=== PATIENT | male | born 1995 | race Caucasian/White ===

== ENCOUNTER 2020-10-15 15:09 | Emergency (ER) | payer OTHER ==
[~2020-10-15] VITALS: Ht 175.3 cm; Wt 86.4 kg
[2020-10-15] MEDS ORDERED: normal saline 1000ML IV soln IVB ONE (15:15)
[2020-10-15] MEDS ORDERED: ondansetron/PF 4mg/2ml inj IV ONE (15:15)
[2020-10-15 15:38] LABS: BASOPHILS % (AUTO) 0.3 % (0-1); EOSINOPHILS # (AUTO) 0.1 X10'3 (0-0.9); EOSINOPHILS % (AUTO) 1.1 % (0-6); HEMATOCRIT 49.6 % (42.0-52.0); HEMOGLOBIN 17.2 g/dl (14.0-17.9); LYMPHOCYTES # (AUTO) 2.4 X10'3 (1.1-4.8); LYMPHOCYTES % (AUTO) 25.6 % (21-51); MEAN CORPUSCULAR HEMOGLOBIN 31.7 PG (27.0-31.0); MEAN CORPUSCULAR HGB CONC 34.6 g/dL (33.0-36.5); MEAN CORPUSCULAR VOLUME 91.5 FL (78-98); MONOCYTES # (AUTO) 0.6 X10'3 (0-0.9); MONOCYTES % (AUTO) 6.6 % (2-12); NEUTROPHILS # (AUTO) 6.1 X10'3 (1.8-7.7); NEUTROPHILS % (AUTO) 66.4 % (42-75); PLATELET COUNT 343 X10'3 (140-440); RED BLOOD COUNT 5.42 X10'6 (4.70-6.10); RED CELL DISTRIBUTION WIDTH 14.3 % (11.5-14.5); WHITE BLOOD COUNT 9.2 X10'3 (4.5-11.0)
[2020-10-15 15:55] LABS: ALANINE AMINOTRANSFERASE 107 U/L (12-78); ALBUMIN 4.7 G/DL (3.4-5.0); ALBUMIN/GLOBULIN RATIO 1.1 (1.1-1.5); ALKALINE PHOSPHATASE 69 IU/L (46-116); ANION GAP 16 (8-16); ASPARTATE AMINO TRANSFERASE 51 U/L (10-37); BILIRUBIN,TOTAL 0.5 MG/DL (0.1-1.0); BLOOD UREA NITROGEN 10 MG/DL (7-18); BUN/CREATININE RATIO 9.3 (5.4-32.0); CALCIUM 8.8 MG/DL (8.5-10.1); CHLORIDE 101 MMOL/L (99-107); CREATININE 1.07 MG/DL (0.60-1.10); GLUCOSE 103 MG/DL (70-104); POTASSIUM 3.7 MMOL/L (3.5-5.1); SODIUM 141 MMOL/L (135-145); TOTAL CARBON DIOXIDE 24.4 MMOL/L (24-32); TOTAL PROTEIN 8.8 G/DL (6.4-8.2); eGFR 83 ML/MIN
--- NOTE | 2020-10-15 17:10 | NUR ---
Pt provided food
--- NOTE | 2020-10-15 18:40 | NUR ---
PT FEELING MUCH BETTER, TOLERATING PO INTAKE. BEING VISITED BY FRIEND, AWAITING RIDE.
--- NOTE | 2020-10-15 20:11 | NUR ---
PT HAS SPOKEN WITH HIS BOSS ON PHONE, HAD GOOD CONVERSTION, FEELING MUCH BETTER AT THIS TIME, NO DISTRESS. AWAITING HIS BROTHER, WHO IS DRIVING FROM [place], TO PICK HIM UP. HAVING SNACKS AND WATCHING MOVIE, VISIBLE TO PSYCHOTHERAPIST.
--- NOTE | 2020-10-15 21:46 | NUR ---
WATCHING MOVIE IN ROOM, NO DISTRESS
[2020-10-15 22:40] VITALS: BP 152/93
== END 2020-10-15 22:44 | disposition home or self-care (01) ==
LOC: ER 15:09
DX: F10.129 Alcohol abuse with intoxication, unspecified (principal); E86.0 Dehydration; Z72.89 Other problems related to lifestyle; Y90.9 Presence of alcohol in blood, level not specified
CPT/HCPCS: 36415; 80053; 85025; 96361; 96374; 99283; J2405; J7030